=== PATIENT | male | born 1990 | race Hispanic/Latino ===

== ENCOUNTER 2021-08-15 17:55 | Emergency (ER) | payer SELFPAY ==
[2021-08-15] MEDS ORDERED: Mag-Al 1200 mg/1200 mg/30 ML UDCUP ONE (19:00)
[2021-08-15] MEDS ORDERED: Lidocaine Viscous Sol 2% 15 ml UD Cup ONE (19:00)
[2021-08-15 19:09] LABS: #Lymphocytes 1.6 thou/uL (1.20-3.40); #Monocytes 0.5 thou/uL (0.11-0.59); #Neutrophils 4.6 thou/uL (1.40-6.50); %Basophils 0.4 % (0.0-1.0); %Eosinophils 0.6 % (0.0-10.0); %Lymphocytes 23.3 % (21.0-51.0); %Monocytes 7.7 % (0.0-10.0); Hemoglobin 14.8 g/dL (14.0-18.0); Mean Corpuscular HGB CONC 34.9 g/dL (32.0-36.0); Mean Corpuscular Hemoglobin 32.5 pg (27.0-31.0); Mean Corpuscular Volume 93.1 fL (78.0-98.0); Mean Platelet Volume 7.9 fL (7.4-10.4); Platelet Count 264 thou/uL (130-400); RBC Distribution Width 11.2 % (11.5-14.5); Red Blood Cell (RBC) Count 4.54 mill/uL (4.70-6.10); White Blood Cell (WBC) Count 6.7 thou/uL (4.8-10.8)
[2021-08-15 19:23] LABS: ALT (SGPT) 172 U/L (8-55); AST (SGOT) 58 U/L (5-34); Albumin 4.3 g/dL (3.5-5.0); Alkaline Phosphatase 106 U/L (40-110); Anion Gap 13 mmol/L (10-20); BUN (Urea Nitrogen) 17 mg/dL (8.9-20.6); Bilirubin, Total 0.4 mg/dL (0.2-1.2); Calc. Creatinine Clearance 0 mL/min (70-130); Calcium 9.2 mg/dL (7.8-10.44); Carbon Dioxide 25 mmol/L (22-29); Chloride 102 mmol/L (98-107); Globulin 3.2 g/dL (2.4-3.5); Glucose 225 mg/dL (70-105); Lipase 27 U/L (8-78); Potassium 3.8 mmol/L (3.5-5.1); Protein, Total 7.5 g/dL (6.0-8.3); Sodium 136 mmol/L (136-145)
== END 2021-08-15 20:28 | disposition home or self-care (01) ==
LOC: ERS 17:55
DX: R07.9 Chest pain, unspecified (principal); R10.13 Epigastric pain
CPT/HCPCS: 36415; 71045; 80053; 83690; 84484; 85025; 93005

== ENCOUNTER 2022-05-14 12:22 | Emergency (ER) | payer SELFPAY ==
[2022-05-14] MEDS ORDERED: Ibuprofen 800 MG TAB ONE (14:09)
[2022-05-14] MEDS ORDERED: Dexameth. Sod Phosp. 10 MG/ML (CHEMO USE ONLY) ONE (16:28)
[2022-05-14] MEDS ORDERED: Dexamethasone 4 MG TAB ONE (16:55)
== END 2022-05-14 16:55 | disposition home or self-care (01) ==
LOC: ERS 12:22
DX: U07.1 COVID-19 (principal)
CPT/HCPCS: 87081; 87430; 87804; 99283; J1100; J8540; U0003; U0005